=== PATIENT | male | born 1990 ===

== ENCOUNTER → 2019-01-19 | Outpatient (CLI) | payer BC ==
--- NOTE | 2019-01-19 16:38 | KCIC ---
Right lower extremity venous ultrasound 01/19/2019 INDICATION: Varicose vein in the right posterior knee area. COMPARISON: None available. TECHNIQUE: Sonographic evaluation of the right lower extremity venous system was performed utilizing grayscale, color Doppler and spectral waveform analysis. FINDINGS/ IMPRESSION: There is no significant reflux identified in the right lower extremity. Right greater saphenous vein is patent. At the right saphenofemoral junction, greater saphenous vein measures 6.5 mm with 0.7 seconds reflux. In the right popliteal region, there is a varicose vein measuring 7 mm. Electronically signed by: Rebeca Hillman MD (01/19/2019 4:35 PM) [facility]
== END | disposition home or self-care (01) ==
LOC: KCIC US 11:55
PROVIDERS: ATTEND Nurse Practitioner Family
DX: I86.8 Varicose veins of other specified sites (principal)
CPT/HCPCS: 93971